=== PATIENT | female | born 1945 | race African-American/Black ===

== ENCOUNTER 2017-02-06 05:04 | Emergency (ER) | payer MEDICARE, MEDICAID ==
[~2017-02-06] VITALS: Ht 162.6 cm; Wt 88.5 kg
[2017-02-06 05:22] VITALS: BP 165/90
[2017-02-06] MEDS ORDERED: diphenhydrAMINE HCL 50 MG/ML VIAL ONE (05:39)
[2017-02-06] MEDS ORDERED: diphenhydrAMINE HCL 50 MG/ML VIAL IM ONE (06:00)
== END 2017-02-06 06:02 | disposition home or self-care (01) ==
LOC: ER 05:07
DX: T36.0X5A Adverse effect of penicillins, initial encounter (principal); Y92.89 Other specified places as the place of occurrence of the external cause; I10 Essential (primary) hypertension; Z88.0 Allergy status to penicillin
CPT/HCPCS: A4606; J1200; Z7610

== ENCOUNTER 2017-05-07 10:05 | Emergency (ER) | payer MEDICARE, MEDICAID ==
[~2017-05-07] VITALS: Ht 162.6 cm; Wt 88.5 kg
[2017-05-07 10:11] VITALS: BP 181/101
[2017-05-07] MEDS ORDERED: NAPROXEN 500 MG TABLET PO STA (10:32)
[2017-05-07] MEDS ORDERED: NAPROXEN 250 MG TABLET ONE (10:43)
== END 2017-05-07 11:26 | disposition home or self-care (01) ==
LOC: ER 10:07
DX: M79.641 Pain in right hand (principal); I10 Essential (primary) hypertension; Z88.0 Allergy status to penicillin; M25.562 Pain in left knee
CPT/HCPCS: 73140; 99284; A4606; Z7610